=== PATIENT | male | born 1960 | race African-American/Black ===

== ENCOUNTER 2017-02-02 15:28 | Emergency (ER) | payer OTHER ==
[~2017-02-02] VITALS: Ht 170.2 cm; Wt 120.7 kg
[2017-02-02 15:47] VITALS: BP 140/83
--- NOTE | 2017-02-02 16:13 | PHYS DOC ---
Adult General Chief Complaint Chief Complaint: URINARY RETENTION HPI HPI 56-year-old male with a history of diabetes and benign prostatic hypertrophy presents with a couple different problems. He states at times he has a difficult time urinating however this has not been the case today. He also states he's had some visual problems that have progressed over the last several months. 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 [] Review of Systems Review of Systems Constitutional: Denies fever or chills [] Eyes: Denies change in visual acuity, redness, or eye pain [] HENT: Denies nasal congestion or sore throat [] Respiratory: Denies cough or shortness of breath [] Cardiovascular: No additional information not addressed in HPI [] GI: Denies abdominal pain, nausea, vomiting, bloody stools or diarrhea [] : Denies dysuria or hematuria [] Musculoskeletal: Denies back pain or joint pain [] Integument: Denies rash or skin lesions [] Neurologic: Denies headache, focal weakness or sensory changes [] Endocrine: Denies polyuria or polydipsia [] Physical Exam Physical Exam Constitutional: Well developed, well nourished, no acute distress, non-toxic appearance. [] HENT: Normocephalic, atraumatic, bilateral external ears normal, oropharynx moist, no oral exudates, nose normal. [] Eyes: PERRLA, EOMI, conjunctiva normal, no discharge. [] Neck: Normal range of motion, no tenderness, supple, no stridor. [] Cardiovascular:Heart rate regular rhythm, no murmur [] Lungs & Thorax: Bilateral breath sounds clear to auscultation [] Abdomen: Bowel sounds normal, soft, no tenderness, no masses, no pulsatile masses. [] Skin: Warm, dry, no erythema, no rash. [] Back: No tenderness, no CVA tenderness. [] Extremities: No tenderness, no cyanosis, no clubbing, ROM intact, no edema. [] Neurologic: Alert and oriented X 3, normal motor function, normal sensory function, no focal deficits noted. [] Psychologic: Affect normal, judgement normal, mood normal. [] EKG EKG [] Radiology/Procedures Radiology/Procedures [] Course & Med Decision Making Course & Med Decision Making Pertinent Labs and Imaging studies reviewed. (See chart for details) [ED course: Evaluation reveals a 56-year-old male in no significant distress. He was able urinate more than 300 mL during his time here. I had a long discussion with the patient about the need to follow with an [employer] as well as a urologist. He will follow up with Dr. Castillo this week to arrange those follow-ups.] Dragon Disclaimer Dragon Disclaimer This electronic medical record was generated, in whole or in part, using a voice recognition dictation system. Departure Departure Impression: Primary Impression: Benign prostatic hypertrophy Additional Impression: Diabetic retinopathy Referrals: BRIAN CASTILLO MD (PCP) SANDRA RODRIGUEZ GURINDER MD Patient Instructions: Type 2 Diabetes Mellitus, Adult Additional Instructions: Follow with Dr. Castillo this week to schedule appointments with both an [employer] and a urologist. Return to the emergency department with any new or concerning symptoms Problem Qualifiers Primary Impression: Benign prostatic hypertrophy Prostatic enlargement morphology: non-nodular Lower urinary tract symptom presence: symptoms present Qualified Code: N40.1 - Benign prostatic hyperplasia with lower urinary tract symptoms Additional Impression: Diabetic retinopathy Diabetes mellitus type: type 2 Diabetic retinopathy severity: with proliferative retinopathy Proliferative retinopathy type: stable Laterality: bilateral Qualified Code: E11.3553 - Type 2 diabetes mellitus with stable proliferative diabetic retinopathy, bilateral MARY PARRA DO Feb 02, 2017 16:13
[2017-02-02] MEDS ORDERED: ATEN1TAB4 PO (16:36)
[2017-02-02] MEDS ORDERED: NAPR220C4 PO (16:36)
[2017-02-02] MEDS ORDERED: DILT90TA PO (16:38)
[2017-02-02] MEDS ORDERED: SIMV20TA3 PO (16:39)
[2017-02-02] MEDS ORDERED: ALLO300T PO (16:39)
[2017-02-02] MEDS ORDERED: TAMS0.4C2 PO (16:40)
[2017-02-02] MEDS ORDERED: CHOL500021 PO (16:41)
[2017-02-02] MEDS ORDERED: METF500T4 PO (16:41)
== END 2017-02-02 16:25 | disposition home or self-care (01) ==
LOC: ER 15:28
DX: N40.0 Benign prostatic hyperplasia without lower urinary tract symptoms (principal); E11.3553 Type 2 diabetes mellitus with stable proliferative diabetic retinopathy, bilateral
CPT/HCPCS: 99281

== ENCOUNTER → 2017-05-09 | Outpatient (CLI) | payer OTHER ==
[~2017-05-09] MED LIST: ALLO300T PO; ATEN1TAB4 PO; CHOL500021 PO; DILT90TA PO; METF500T4 PO; NAPR220C4 PO; SIMV20TA3 PO; TAMS0.4C2 PO
[2017-05-09 17:17] LABS: BASO # 0.1 x10^3/uL (0.0-0.2); BASO % 1 % (0-3); EOS % 12 % (0-3); HEMATOCRIT 37.9 % (39.0-53.0); HEMOGLOBIN 13.3 g/dL (13.0-17.5); LYMPH # 2.3 x10^3/uL (1.0-4.8); LYMPH % 32 % (24-48); MEAN CORPUSCULAR HEMOGLOBIN 32 pg (25-35); MEAN CORPUSCULAR HGB CONC 35 g/dL (31-37); MEAN CORPUSCULAR VOLUME 92 fL (79-100); MONO % 9 % (0-9); NEUT % 46 % (31-73); PLATELET COUNT 240 x10^3/uL (140-400); RED BLOOD COUNT 4.12 x10^6/uL (4.30-5.70); WHITE BLOOD COUNT 7.1 x10^3/uL (4.0-11.0)
[2017-05-09 17:43] LABS: ALBUMIN 3.8 g/dL (3.4-5.0); ALBUMIN/GLOBULIN RATIO 0.8 (1.0-1.7); CALCIUM 9.1 mg/dL (8.5-10.1); CREATININE 1.3 mg/dL (0.7-1.3); GFR 68.8; POTASSIUM 3.8 mmol/L (3.5-5.1); TOTAL BILIRUBIN 0.3 mg/dL (0.2-1.0); TOTAL PROTEIN 8.4 g/dL (6.4-8.2)
== END | disposition home or self-care (01) ==
LOC: LAB 16:59
PROVIDERS: ATTEND Family Medicine
DX: E11.40 Type 2 diabetes mellitus with diabetic neuropathy, unspecified (principal); I10 Essential (primary) hypertension
CPT/HCPCS: 36415; 80053; 82150; 82550; 83036; 83605; 83690; 85027

== ENCOUNTER → 2017-10-08 | Outpatient (CLI) | payer OTHER ==
--- NOTE | 2017-10-09 07:23 | RAD ---
Left hip, 2 views, 10/08/2017: History: hip pain No fracture or dislocation is identified. There is minimal narrowing of the left hip joint. A small focal density projected over the left humeral neck is probably a bone island. The periarticular soft tissues are unremarkable. IMPRESSION: 1. Minimal narrowing of the left hip joint. 2. No acute bony abnormality is detected.
== END | disposition home or self-care (01) ==
LOC: RAD 17:11
PROVIDERS: ATTEND Family Medicine
DX: M25.552 Pain in left hip (principal)
CPT/HCPCS: 73502

== ENCOUNTER → 2018-09-04 | Outpatient (CLI) | payer OTHER ==
[~2018-09-04] MED LIST changes: +METF500T16 PO; -METF500T4 PO
--- NOTE | 2018-09-04 15:44 | KCIC ---
CT LUMBAR SPINE WO CONTRAST Indication: Spondylolisthesis, low back pain with left hip pain, loss of strength of the left leg, legs giving out Technique: Noncontrast CT imaging was performed of the lumbar spine, multiplanar reconstruction images submitted. One or more of the following individualized dose reduction techniques were utilized for this examination: 1. Automated exposure control 2. Adjustment of the mA and/or kV according to patient size 3. Use of iterative reconstruction technique. Comparison: None available Findings: Lumbar vertebral body stature is preserved. There is negligible anterior spondylolisthesis L4-L5. Intervertebral disc spaces are relatively preserved. There is very mild dextroscoliosis. There is moderate to severe attenuation of the thecal sac at L4-5 through the inferior aspect of L5 and to lesser degree in the sacrum due to epidural lipomatosis greater posteriorly. Otherwise there is no significant lumbar spinal stenosis. There are negligible posterior bulges at L4-5 and L5-S1. Neural foramina are not significantly narrowed. There is multilevel lumbar moderate to severe lumbar facet degenerative change greater inferiorly of the lumbar spine. IMPRESSION: 1. There is multilevel epidural lipomatosis with moderate to severe attenuation of the thecal sac at L4-5 extending to the inferior aspect of L5, to lesser degree in the sacrum. There are negligible posterior bulges at L4-5 and L5-S1. There is negligible anterior spondylolisthesis L4-5, multilevel facet degenerative change. Electronically signed by: Humberto Hopper MD (09/04/2018 3:41 PM) [id number]
== END | disposition home or self-care (01) ==
LOC: KCIC CT 10:27
PROVIDERS: ATTEND Family Medicine
DX: M43.16 Spondylolisthesis, lumbar region (principal); E88.2 Lipomatosis, not elsewhere classified; I10 Essential (primary) hypertension; E11.9 Type 2 diabetes mellitus without complications
CPT/HCPCS: 72131